=== PATIENT | male | born 1970 | race Caucasian/White ===

== ENCOUNTER 2024-05-01 19:01 | Emergency (ER) | payer BC ==
[2024-05-01 19:07] VITALS: BP 176/98; PULSE 91; RESP 18; TEMP 98.2; BMI 32.6
== END 2024-05-01 20:39 | disposition home or self-care (01) ==
LOC: JER 19:01
DX: I10 Essential (primary) hypertension (principal); R51.9 Headache, unspecified
CPT/HCPCS: 93005; 93010; 99283-25